=== PATIENT | male | born 1995 | race Caucasian/White ===

== ENCOUNTER 2017-10-03 08:27 | Emergency (ER) | payer MEDICAID ==
[~2017-10-03] VITALS: Ht 180.3 cm; Wt 121.0 kg
[2017-10-03 08:28] VITALS: BP 124/76
[2017-10-03] MEDS ORDERED: DEXAMETHASONE 4 MG TABLET PO ONE (09:00)
[2017-10-03] MEDS ORDERED: DEXAMETHASONE 4 MG TABLET ONE (09:02)
== END 2017-10-03 09:54 | disposition home or self-care (01) ==
LOC: ED 09:00
DX: J02.0 Streptococcal pharyngitis (principal)
CPT/HCPCS: 99283